=== PATIENT | female | born 1970 | race Caucasian/White ===

== ENCOUNTER 2021-12-19 15:17 | Outpatient (CLI) | payer BC, SELFPAY ==
--- NOTE | 2021-12-19 16:14 | XR_ITS ---
WS: [id number] Left knee, AP and lateral views, 12/19/2021. Clinical Data: ACUTE PAIN OF LEFT KNEE Comparison: None. Findings: No fractures or dislocations are seen. There is minimal medial joint compartment narrowing with a sma ll spur of the medial tibial plateau.. The patella is intact. There is a small posterior superior pat ellar spur. The soft tissues are unremarkable. XR/XR knee LT 1-2V [id number] Impression: Negative left knee. Kellgren-Jorje Classification: grade 1 (doubtful): doubtful joint space narr owing and possible osteophytic lipping
--- NOTE | 2021-12-19 16:14 | XR_ITS ---
WS: [id number] Left hand, 2 views, 12/19/2021. Clinical Data: PAIN IN LEFT HAND Comparison: None. Findings: No fractures or dislocations are seen. The soft tissues are unremarkable. The joint spaces are normal XR/XR hand LT 2V [id number] Impression: Negative left hand.
== END 2021-12-19 15:18 | disposition home or self-care (01) ==
PROVIDERS: PCP Nurse Practitioner; Visit Provider Nurse Practitioner Family
DX: M79.642 Pain in left hand (principal); M25.562 Pain in left knee
CPT/HCPCS: 73120; 73560

== ENCOUNTER 2023-03-21 13:57 | Emergency (ER) | payer BC, SELFPAY ==
[2023-03-21 14:08] VITALS: BP 108/66; PULSE 110; RESP 18; TEMP 36.6; O2SAT 98
--- NOTE | 2023-03-21 14:44 | ED_ITS ---
HPI - Allergic Reaction General: Chief complaint: Allergic Reaction Stated complaint: allergic reaction/rash Time Seen by Provider: 03/21/23 14:40 History of Present Illness: HPI narrative: Patient presents to the ER with complaints of allergic reaction. Patient says she has a blotchy itchy rash generalized. And feels like her mouth is numb and puffy. Patient did take an allergy pill before coming in about an hour ago and says it has helped somewhat. Patient does not know what she was exposed to and has never had this type of allergy reaction before. MD complaint: allergic reaction and hives Onset (ago): hour(s) (About an hour and a half ago) Exposure: unknown Known history of allergy to: Nothing Associated symptoms: Reports itching, lip swelling and tongue swelling Severity: mild Treatment prior to arrival: other (Generic allergy pill) Previous Allergic Reaction History: none Review of Systems General: Reports: 10 or more systems reviewed and unremarkable except in HPI and below All/Imm: Reports: tongue swelling Physical Exam Const: COMMON NORMALS: no acute distress, average body habitus, patient oriented x3, no limitations, healthy appearing, alert and well nourished HENMT: COMMON NORMALS: normocephalic, atraumatic, hearing grossly normal bilaterally, external ears normal, Normal external nose present and moist oral mucous membranes HEAD & SCALP: normocephalic and atraumatic NOSE: Normal external nose present EXTERNAL EAR: Yes external ears normal Eye: COMMON NORMALS: Equal, round and reactive pupils present, EOMs intact bilaterally, conjunctivae normal and no scleral icterus CONJUNCTIVA: Yes conjunctivae normal PUPIL: Yes Equal, round and reactive pupils present Neck/C-Spine: COMMON NORMALS: no JVD Chest: COMMONS NORMALS: normal inspection of the chest and normal palpation of entire chest wall Resp: COMMON NORMALS: normal respiratory effort, No retractions, No use of accessory muscles and clear to auscultation bilaterally AUSCULTATION: clear to auscultation bilaterally Cardio: COMMON NORMALS: no JVD, regular rate, regular rhythm, S1 normal heart sound present and S2 normal heart sound present RATE: regular rate RHYTHM: regular rhythm HEART SOUNDS: S1 normal heart sound present and S2 normal heart sound present GI: COMMON NORMALS: Normal to inspection, nondistended, normoactive bowel sounds present, Soft to palpation, non-tender, No hepatosplenomegaly present and no masses PALPATION: Yes Soft to palpation and Yes No hepatosplenomegaly present Neuro: COMMON NORMALS: patient oriented x3 SENSORIUM/ORIENTATION: Yes alert Course Vital Signs: Vital signs: Vital Signs Temperature 97.8 F 03/21/23 14:08 Pulse Rate 71 03/21/23 15:34 Respiratory Rate 18 03/21/23 14:08 Blood Pressure 125/80 03/21/23 15:05 Pulse Oximetry 97 03/21/23 15:34 Oxygen Delivery Me thod Room Air 03/21/23 15:05 MDM - Allergic Reaction Medical Decision Making Patient presents to the ER with complaints of allergic type reaction. Patient is already taken [id number] allergy pill. Patient is in no acute distress at this time. Patient will be given Pepcid 40 mg p.o. and Decadron 10 mg IM. Patient be watched approximately 30 to 60 minutes and then will be discharged home to follow-up with her PCP in approximately 7 to 10 days. Differential Diagnosis Likely allergic reaction; Unlikely anaphylaxis, angioedema, contact dermatitis, adverse reaction to drug, viral enanthem or urticaria Medical Records I reviewed the patient's medical records. Lab Data I reviewed the patient's lab results. Discharge Plan Discharge Patient Disposition: Home Clinical Impression: Allergic reaction Condition: Stable Discharge Orders: Discharge ED (Routine); Ordered 03/21/23 Ordered By: Tc Valdez Referrals: Dali Mora APN [Primary Care Provider] - 1 week Patient Instructions: Allergic Reaction Activity Restrictions/Additional Instructions: Please continue your allergy pill as prescribed. Please follow-up with your primary care practitioner within next 1 week or as needed. Coding Level of Care Code ED Director Of Outpatient Services for Rafael Peña
[2023-03-21] MEDS: dexamethasone 10 mg/mL INJ IM (15:01)
[2023-03-21] MEDS: famotidine 20 mg Tablet 40 MG PO (15:01)
[2023-03-21 15:05] VITALS: BP 125/80; PULSE 80; O2SAT 100
[2023-03-21 15:34] VITALS: PULSE 71; O2SAT 97
== END 2023-03-21 15:36 | disposition home or self-care (01) ==
PROVIDERS: Emergency Provider Emergency Medicine; PCP Nurse Practitioner Family
DX: T78.40XA Allergy, unspecified, initial encounter (principal); X58.XXXA Exposure to other specified factors, initial encounter
CPT/HCPCS: 96372; 99284; J1100